=== PATIENT | female | born 1940 | race Caucasian/White ===

== ENCOUNTER 2016-06-02 00:43 | Emergency (ER) | payer MEDICARE, BC ==
[2016-06-02 01:14] VITALS: BP 151/72
[2016-06-02] MEDS ORDERED: GI Cocktail Oral Solution 30 ML PO ONE (01:39)
--- NOTE | 2016-06-02 01:44 | EDM.PDOC ---
ED HISTORY OF PRESENT ILLNESS - General Chief Complaint: Respiratory Problem Stated Complaint: SOB [phone] Time Seen by Provider: 06/02/16 01:41 Source of Information: Reports: Patient History Limitations: Reports: No limitations - History of Present Illness INITIAL COMMENTS - FREE TEXT/NARRATIVE: states been having chest pain problem past few weeks and saw [facility] CAT-chest and EKG and labs where all were ok, got referred to Dr Mcgrath for . tonight seems to feel little more worse so came here. - Related Data Allergies/ADRs: Allergies Allergy/AdvReac Type Severity Reaction Status Date / Time Penicillins Allergy Cannot Verified 06/02/16 00:50 Remember sertraline HCl [From Zoloft] Allergy Other Verified 06/02/16 00:50 sulfadiazine Allergy Cannot Verified 06/02/16 00:50 Remember Tetracyclines Allergy Cannot Verified 06/02/16 00:50 Remember Home Meds: Home Meds Levothyroxine [Synthroid] 1 tab PO DAILY 11/28/13 [History] Policosanol Combination No.3 [Zyncol] 1 tab PO DAILY 06/29/15 [History] Aspirin [Low Dose Aspirin EC] 1 tab PO DAILY 06/02/16 [History] Calcium Carbonate/Vitamin D3 [Calcium 500-Vit D3 200 Caplet] 1 tab PO BID [History] Iron 1 tab PO DAILY 06/02/16 [History] Lutein/Minerals/Vit A,C & E [Ocuvite] 1 tab PO DAILY 06/02/16 [History] Past Medical History HEENT History: Reports: Cataract, Impaired vision Cardiovascular History: Reports: High cholesterol Respiratory History: Reports: None Gastrointestinal History: Reports: None Genitourinary History: Reports: None [employer] History: Reports: Musculoskeletal History: Reports: Other (see below) Other Musculoskeletal History: rib dislocation L) side Neurological History: Reports: Migraines Psychiatric History: Reports: None Endocrine/Metabolic History: Reports: Hypothyroidism Hematologic History: Reports: None Immunologic History: Reports: None Oncologic (Cancer) History: Reports: None Dermatologic History: Reports: None - Infectious Disease History Infectious Disease History: Reports: Chicken pox, Measles, Mumps, Pertussis ( whooping cough) - Past Surgical History Head Surgeries/Procedures: Reports: None HEENT Surgical History: Reports: Cataract surgery Cardiovascular Surgical History: Reports: None Respiratory Surgical History: Reports: None GI Surgical History: Reports: None Female Surgical History: Reports: Hysterectomy Neurological Surgical History: Reports: None Musculoskeletal Surgical History: Reports: None Oncologic Surgical History: Reports: None Dermatological Surgical History: Reports: None Social & Family History - Tobacco Use Smoking Status *Q: Never Smoker Years of Tobacco use: 20 Second Hand Smoke Exposure: No - Caffeine Use Caffeine Use: Reports: Soda - Alcohol Use Days Per Week of Alcohol Use: 0 - Recreational Drug Use Recreational Drug Use: No ED ROS GENERAL - Review of Systems Review Of Systems: ROS reveals no pertinent complaints other than HPI. ED EXAM, GENERAL - Physical Exam Exam: See Below Exam Limited By: No limitations General Appearance: alert, WD/WN, no apparent distress, other (pleasant talkative,) Ears: hearing grossly normal Throat/Mouth: Normal voice, No airway compromise Head: atraumatic Neck: non-tender, full range of motion Respiratory/Chest: no respiratory distress Cardiovascular: regular rate, rhythm GI/Abdominal: soft, non tender Neurological: alert, oriented, normal cognition, normal gait, no motor/sensory deficits Psychiatric: normal affect, normal mood Skin Exam: Warm, Dry Lymphatic: no adenopathy Course - Vital Signs Last Recorded V/S: Last Vital Signs Temp 36.3 C 06/02/16 01:07 Pulse 70 06/02/16 01:07 Resp 18 06/02/16 01:07 BP 151/72 H 06/02/16 01:07 Pulse Ox 100 06/02/16 01:07 - Orders/Labs/Meds Labs: Laboratory Tests 06/02/16 06/02/16 Range/Units 01:50 01:50 WBC 6.2 (5.0-10.0) 10^3/uL RBC 4.10 L (4.2-5.4) 10^6/uL Hgb 9.8 L (12.0-16.0) g/dL Hct 32.3 L (37.0-47.0) % MCV 78.8 L (80-100) fL MCH 23.9 L (27.0-34.0) pg MCHC 30.3 L (33.0-35.0) g/dL Plt Count 217 (150-450) 10^3/uL Neut % (Auto) 59.1 (42.2-75.2) % Lymph % (Auto) 32.1 (20.5-50.1) % [place]aney % (Auto) 6.6 (2-8) % Eos % (Auto) 1.9 (1.0-3.0) % Baso % (Auto) 0.3 (0.0-1.0) % Sodium 138 (135-145) mmol/L Potassium 4.0 (3.6-5.0) mmol/L Chloride 104 (101-111) mmol/L Carbon Dioxide 24.0 (21.0-31.0) mmol/L Anion Gap 14.0 BUN 15 (7-18) mg/dL Creatinine 1.0 (0.6-1.3) mg/dL Est Cr Clr Drug Dosing 46.20 mL/min Estimated GFR (MDRD) 54 BUN/Creatinine Ratio 15.00 Glucose 97 (74-105) mg/dL Calcium 9.7 (8.4-10.2) mg/dl Total Bilirubin 0.3 (0.2-1.0) mg/dL AST 34 (10-42) IU/L ALT 25 (10-60) IU/L Alkaline Phosphatase 67 (42-121) IU/L Troponin I < 0.02 (0.00-0.02) ng/ml B-Natriuretic Peptide 21 (0-100) pg/ml Total Protein 7.0 (6.7-8.2) g/dl Albumin 4.2 (3.2-5.5) g/dl Globulin 2.8 Albumin/Globulin Ratio 1.50 Meds: Medications Discontinued Medications Generic Name Dose Route Start Last Admin Trade Name Ramyq PRN Reason Stop Dose Admin Al Hydroxide/Mg Hydroxide 30 ml 06/02/16 01:39 06/02/16 01:51 Gi Cocktail PO 06/02/16 01:40 30 ml ONETIME ONE Administration - Re-Assessments/Exams Free Text/Narrative Re-Assessment/Exam: 06/02/16 02:55 results discussed with Pt who is feeling much better after GI cocktail. states her spouse 6 years ago and lives alone. Departure - Departure Time of Disposition: 02:56 Disposition: Home, Self-Care 01 Condition: good Clinical Impression: Atypical chest pain Instructions: Chest Wall Pain, [id number] Forms: ED Department Discharge Additional Instructions: 1) rest 2) avoid vigorous activity 3) continue home meds 4) follow up with clinic or recheck as needed rx given: hydroxyzine 25mg bid prn x 12
[2016-06-02 02:15] LABS: CHLORIDE,CL 104 mmol/L (101-111); SODIUM,NA 138 mmol/L (135-145)
[2016-06-02] MEDS ORDERED: hydrOXYzine HCl 25 MG Tab PO ONE (02:55)
[2016-06-02] MEDS ORDERED: hydrOXYzine HCl 25 MG Tab ONE (02:55)
== END 2016-06-02 03:04 | disposition home or self-care (01) ==
LOC: DL.ED 00:43
DX: R07.89 Other chest pain (principal); E78.00 Pure hypercholesterolemia, unspecified; E03.9 Hypothyroidism, unspecified; Z98.49 Cataract extraction status, unspecified eye; Z90.710 Acquired absence of both cervix and uterus; Z79.82 Long term (current) use of aspirin; Z79.899 Other long term (current) drug therapy; Z88.0 Allergy status to penicillin; Z88.2 Allergy status to sulfonamides; Z88.1 Allergy status to other antibiotic agents
CPT/HCPCS: 36415; 80053; 83880; 84484; 85025; 99283; A9270

== ENCOUNTER 2016-06-19 06:51 | Day surgery (SDC) | payer MEDICARE, BC ==
[~2016-06-19 06:51] MED LIST: Dextrose 5%-0.45% NaCl 1,000 ML IV SCH; Midazolam 1 MG/ML 2 ML SDV ONE; Sodium Chloride 0.9% 10 ML Syringe FLUSH PRN; fentaNYL 100 MCG/2 ML SDV ONE
[2016-06-19] MEDS ORDERED: fentaNYL 100 MCG/2 ML SDV IV ONE ×3 (07:38→15:37)
[2016-06-19] MEDS ORDERED: Midazolam 1 MG/ML 2 ML SDV IV ONE ×3 (07:40→15:37)
[2016-06-19 09:31] VITALS: BP 118/56
--- NOTE | 2016-06-19 11:19 | OR ---
DATE: 06/19/2016 PROCEDURE: Esophagogastroduodenoscopy and multiple pinch biopsies. INSTRUMENT USED: GIF-H180 Olympus video panendoscope. PREMEDICATIONS: No oral topical anesthesia used. Fentanyl 100 mcg intravenous, Versed 2 mg intravenous. Nasal 2 L O2 cannula. The procedure was done under pulse oximetry, BP recording, and quality assurance monitor body. INDICATION: The patient with recently detected iron-deficiency anemia, on long- term aspirin. Esophagogastroduodenoscopy is performed for detection of any active erosive lesions, Baez's esophagus and/or malignancy also under consideration, H. pylori status to be determined, endoscopic hemostasis therapy if needed. DESCRIPTION OF PROCEDURE: The scope was passed with ease. Adequate visualization of the esophagus was made from proximal to distal areas. No upper esophageal lesions identified. No distal esophageal stricture. No uphill or downhill esophageal varices. No Ginny-Reyes tear. No evidence of erosive esophagitis by [place] criteria. No esophageal polyp or tumor mass identified. Large sliding hiatal hernia was noted. No proximal gastric varices noted. Gastric fundus examination by retroflexion showed no polypoid lesions. No gastric ulcer, malignant mass, or vascular ectasia identified. Numerous scattered gastric antral erosions were noted without bleeding from them. Multiple pinch biopsies were taken from the gastric antrum and proximal body and sent for PyloriTek test for H. pylori, and if negative in an hour, the tissue is to be sent for histopathology. No gastric vascular ectasia, polyp, or malignant mass noted. Duodenal bulb showed no ulcer. Visualized second part of the duodenum was unremarkable. Photographs were taken of the duodenal bulb, gastric antrum, fundus, and distal esophagus. No bleeding was noted from any of the visualized areas at the completion of examination. IMPRESSION: 1. Sliding hiatal hernia. 2. Gastric antral erosions. The patient tolerated the procedure well. [facility] /[id number]
== END 2016-06-19 09:50 | disposition home or self-care (01) ==
LOC: DL.ENDO 06:51
PROVIDERS: ATTEND Internal Medicine Gastroenterology
DX: K29.50 Unspecified chronic gastritis without bleeding (principal); K44.9 Diaphragmatic hernia without obstruction or gangrene; Z88.0 Allergy status to penicillin; Z88.1 Allergy status to other antibiotic agents; Z88.2 Allergy status to sulfonamides; Z88.8 Allergy status to other drugs, medicaments and biological substances; E78.5 Hyperlipidemia, unspecified; E03.9 Hypothyroidism, unspecified; F41.9 Anxiety disorder, unspecified; Z90.710 Acquired absence of both cervix and uterus
CPT/HCPCS: 43239; 87077; J2250; J3010; J7042; 88305

== ENCOUNTER 2016-06-21 05:12 | Day surgery (SDC) | payer MEDICARE, BC ==
[2016-06-21] MEDS ORDERED: Dextrose 5%-0.45% NaCl 1,000 ML IV SCH (06:00)
[2016-06-21] MEDS ORDERED: Midazolam 1 MG/ML 2 ML SDV ONE (06:15)
[2016-06-21] MEDS ORDERED: fentaNYL 100 MCG/2 ML SDV ONE (06:16)
[2016-06-21] MEDS ORDERED: fentaNYL 100 MCG/2 ML SDV IV ONE ×3 (06:31→17:01)
[2016-06-21] MEDS ORDERED: Midazolam 1 MG/ML 2 ML SDV IV ONE ×5 (06:32→17:01)
[2016-06-21 08:13] VITALS: BP 105/56
--- NOTE | 2016-06-21 08:31 | OR ---
DATE: 06/21/2016 PROCEDURE: Total colonoscopy. INSTRUMENT USED: PCF-H180AL Olympus video colonoscope PREMEDICATIONS: Fentanyl 100 mcg intravenous, Versed 3 mg intravenous. Nasal 2 L O2 cannula. The procedure was done under pulse oximetry, BP recording, and econometrics professor. INDICATION: The patient with iron-deficiency anemia. Colonoscopic examination is done for detection of any polypoid lesions and removal, endoscopic hemostasis therapy if needed. DESCRIPTION OF PROCEDURE: Initial rectal exam was unremarkable. Rigid anoscopy was normal. The colonoscope was passed with ease. Some scattered diverticula were noted in the distal left colon. The scope was passed with ease up to the ileocecal area, photographs were taken of the normal-appearing cecum, identified by double- bulged ileocecal folds. No bleeding was noted from any of the visualized areas at the commencement of the examination. No stricture. No vascular ectasia. No large isolated ulcerations seen. No evidence of diffuse inflammatory bowel disease in the form of friability, contact bleeding, or ulcerations. No polyp or tumor mass identified. Probing the proximal sides of folds and flexures, using adequate distention and clearing of the stool material, withdrawal of the scope was made, cecum to rectum time over 6 minutes. No bleeding was noted from any of the visualized areas at the completion of examination. IMPRESSION: Diverticulosis. The patient tolerated the procedure well. [facility] /[id number]
== END 2016-06-21 08:42 | disposition home or self-care (01) ==
LOC: DL.ENDO 05:12
PROVIDERS: ATTEND Internal Medicine Gastroenterology
DX: K57.30 Diverticulosis of large intestine without perforation or abscess without bleeding (principal); E78.5 Hyperlipidemia, unspecified; E03.9 Hypothyroidism, unspecified; Z88.0 Allergy status to penicillin; Z88.1 Allergy status to other antibiotic agents; Z88.8 Allergy status to other drugs, medicaments and biological substances; F41.9 Anxiety disorder, unspecified; Z90.710 Acquired absence of both cervix and uterus
CPT/HCPCS: 45378; J2250; J3010; J7042

== ENCOUNTER 2019-05-11 06:43 | Day surgery (SDC) | payer MEDICARE, BC ==
[~2019-05-11 06:43] MED LIST changes: -Dextrose 5%-0.45% NaCl 1,000 ML IV SCH; -Sodium Chloride 0.9% 10 ML Syringe FLUSH PRN
[2019-05-11] MEDS ORDERED: fentaNYL 100 MCG/2 ML SDV IV ONE ×3 (06:44→08:08)
[2019-05-11] MEDS ORDERED: Midazolam 1 MG/ML 2 ML SDV IV ONE ×4 (06:44→08:10)
[2019-05-11] MEDS ORDERED: Dextrose 5%-0.45% NaCl 1,000 ML IV SCH (07:30)
--- NOTE | 2019-05-11 09:35 | OR ---
DATE: 05/11/2019 PROCEDURE: Esophagogastroduodenoscopy, multiple pinch biopsies, and brush biopsy. INSTRUMENT USED: GIF-HQ190 Olympus video panendoscope. PREMEDICATIONS: No oral or topical anesthesia used. Fentanyl 100 mcg intravenous, Versed 2 mg intravenous, nasal O2 cannula. Procedure was done under pulse oximetry, BP recording, and drapery installer. INDICATION: The patient with persistent multiple abdominal symptoms, unexplained and not responsive to medical measures, on acid suppressants. Esophagogastroduodenoscopy is performed for detection of any active erosive lesions, Baez esophagus and/or malignancy also under consideration, H pylori status to be determined, endoscopic hemostasis therapy if needed. PROCEDURE IN DETAIL: The scope was passed with ease. Adequate visualization of the esophagus was made from proximal to distal areas. No upper esophageal lesions identified. No distal esophageal stricture. No uphill or downhill esophageal varices. No Ginny-Reyes tear. No evidence of erosive changes by [place] criteria. No esophageal polyp or tumor mass identified. Large hiatal hernia with Derik ulcers noted without bleeding from them. No proximal gastric varices noted. Gastric fundus examination by retroflexion showed no malignant lesions. No gastric malignant mass or vascular ectasia identified. In the mid gastric antrum, 1 cm sized benign-appearing ulcer was noted without bleeding from it. Photographs were taken, multiple pinch biopsies, 6 in number were taken from different areas of the ulcer and brush biopsy was taken for cytology. Duodenal bulb showed no ulcer. Visualized second part of the duodenum was unremarkable. Multiple pinch biopsies were taken from the gastric antrum and proximal body and sent for PyloriTek test for H pylori and histopathology. No bleeding was noted from any of the visualized areas at the completion of examination. Photographs were taken of the duodenal bulb, gastric antrum, fundus, and distal esophagus. IMPRESSION: 1. Hiatal hernia. 2. Derik ulcers. 3. Gastric antral ulcers. The patient tolerated the procedure well. [facility] /[id number]
[2019-05-11 12:35] VITALS: BP 107/77; PULSE 71
== END 2019-05-11 10:20 | disposition home or self-care (01) ==
LOC: DL.ENDO 06:43
PROVIDERS: ATTEND Internal Medicine Gastroenterology
DX: K25.9 Gastric ulcer, unspecified as acute or chronic, without hemorrhage or perforation (principal); K44.9 Diaphragmatic hernia without obstruction or gangrene; M85.80 Other specified disorders of bone density and structure, unspecified site; E03.9 Hypothyroidism, unspecified; E78.5 Hyperlipidemia, unspecified; Z90.710 Acquired absence of both cervix and uterus; Z88.1 Allergy status to other antibiotic agents; Z88.8 Allergy status to other drugs, medicaments and biological substances; Z88.0 Allergy status to penicillin; Z98.49 Cataract extraction status, unspecified eye
CPT/HCPCS: 43239; 87077; J2250; J3010; J7042; 88104; 88305; 88342

== ENCOUNTER 2019-07-23 06:21 | Day surgery (SDC) | payer MEDICARE, BC ==
[2019-07-23] MEDS ORDERED: Midazolam 1 MG/ML 2 ML SDV IV ONE ×3 (06:22→07:41)
[2019-07-23] MEDS ORDERED: fentaNYL 100 MCG/2 ML SDV IV ONE ×3 (06:22→07:40)
[2019-07-23] MEDS ORDERED: Dextrose 5%-0.45% NaCl 1,000 ML IV SCH (07:00)
--- NOTE | 2019-07-23 08:54 | OR ---
DATE: 07/23/2019 PROCEDURE: Esophagogastroduodenoscopy. INSTRUMENT USED: GIF-HQ190 Olympus video colonoscope. PREMEDICATIONS: No oral or topical anesthesia used. Fentanyl 100 mcg intravenous, Versed 2 mg intravenous. Nasal O2 cannula. The procedure was done under pulse oximetry, BP recording, and awake overnight monitor. INDICATION: The patient with previous gastric ulcer treated with PPI. Esophagogastroduodenoscopy is performed for verification of total healing of gastric ulcer, rule out malignancy, endoscopic hemostasis therapy if needed. PROCEDURE IN DETAIL: The scope was passed with ease. Adequate visualization of the esophagus was made from proximal to distal areas. No upper esophageal lesions identified. No distal esophageal stricture. No uphill or downhill esophageal varices. No Ginny-Reyes tear. No evidence of erosive esophagitis by [place] criteria. No esophageal polyp or tumor mass identified. Large sliding hiatal hernia was noted. No proximal gastric varices noted. Gastric fundus examination by retroflexion showed no polypoid lesions. No gastric ulcer, malignant mass, or vascular ectasia identified. Duodenal bulb showed no ulcer. Visualized 2nd part of the duodenum was unremarkable. No bleeding was noted from any of the visualized areas at the completion of examination. Photographs were taken of the duodenal bulb, gastric antrum, fundus, and distal esophagus. IMPRESSION: Large hiatal hernia. The patient tolerated the procedure well. [facility] /[id number]
[2019-07-23 09:47] VITALS: BP 129/65; PULSE 59
== END 2019-07-23 09:52 | disposition home or self-care (01) ==
LOC: DL.ENDO 06:21
PROVIDERS: ATTEND Internal Medicine Gastroenterology
DX: K44.9 Diaphragmatic hernia without obstruction or gangrene (principal); K25.9 Gastric ulcer, unspecified as acute or chronic, without hemorrhage or perforation; F41.1 Generalized anxiety disorder; E03.9 Hypothyroidism, unspecified; E78.5 Hyperlipidemia, unspecified; Z79.899 Other long term (current) drug therapy
CPT/HCPCS: 43235; J2250; J3010; J7042

== ENCOUNTER 2024-10-27 17:08 | Emergency (ER) | payer MEDICARE, BC ==
[2024-10-27 18:02] LABS: BASOPHILS PERCENT AUTO 0.2 % (0.0-1.0); EOSINOPHILS PERCENT AUTO 0.8 % (1.0-3.0); LYMPHOCYTES PERCENT AUTO 21.0 % (20.5-50.1); MONOCYTES PERCENT AUTO 5.2 % (2-8); NEUTROPHILS PERCENT AUTO 72.8 % (42.2-75.2); PLATELET COUNT,PLT 106 10^3/uL (150-450); RED BLOOD CELL COUNT 4.84 10^6/uL (4.2-5.4); WHITE BLOOD CELL COUNT,WBC 5.2 10^3/uL (5.0-10.0)
[2024-10-27 18:26] LABS: A/G RATIO 1.3; ALANINE AMINOTRANSFERASE,ALT 16.0 U/L (14-59); ASPARTATE AMNIOTRANSFERASE,AST 20.0 U/L (15-37); BILIRUBIN TOTAL 0.8 mg/dL (0.2-1.0); BLOOD UREA NITROGEN,BUN 15.0 mg/dL (7-18); CARBON DIOXIDE,CO2 28.0 mmol/L (21-32); CHLORIDE,CL 108.0 mmol/L (98-107); CREATININE 1.16 mg/dL (0.55-1.02); EST CRCL DRUG DOSING (CG) 31.73 mL/min; GLUCOSE RANDOM 141.0 mg/dL (70-99); POTASSIUM,K 3.8 mmol/L (3.5-5.1); PROTEIN TOTAL,TP 6.9 g/dL (6.4-8.2); SODIUM,NA 147.0 mmol/L (136-145)
[2024-10-27 18:27] LABS: INR 1.0 (0.9-1.2)
[2024-10-27 18:36] LABS: ESTIMATED GFR 47.0 mL/min (>=60)
[2024-10-27 19:12] VITALS: BP 121/77; PULSE 81
== END 2024-10-27 19:10 | disposition home or self-care (01) ==
LOC: DL.ED 17:08
DX: K44.9 Diaphragmatic hernia without obstruction or gangrene (principal); E78.00 Pure hypercholesterolemia, unspecified; E03.9 Hypothyroidism, unspecified; Z88.0 Allergy status to penicillin; Z88.2 Allergy status to sulfonamides; Z88.8 Allergy status to other drugs, medicaments and biological substances; Z79.890 Hormone replacement therapy; Z79.899 Other long term (current) drug therapy
CPT/HCPCS: 36415; 71045; 80053; 83690; 84484; 85025; 85610; 93005; 99285

== ENCOUNTER 2024-11-30 07:05 | Day surgery (SDC) | payer MEDICARE, BC ==
[2024-11-30] MEDS: Lactated Ringers 1,000 ML IV SCH (07:45)
[2024-11-30 09:06] VITALS: BP 116/91; PULSE 64
[2024-11-30] MEDS ORDERED: Propofol 200 MG/20 ML SDV ONE (09:23)
== END 2024-11-30 10:21 | disposition home or self-care (01) ==
LOC: DL.ENDO 07:05
PROVIDERS: ATTEND Internal Medicine Gastroenterology
DX: K44.9 Diaphragmatic hernia without obstruction or gangrene (principal); E03.9 Hypothyroidism, unspecified; K21.9 Gastro-esophageal reflux disease without esophagitis; Z88.8 Allergy status to other drugs, medicaments and biological substances; Z88.0 Allergy status to penicillin; Z79.890 Hormone replacement therapy
CPT/HCPCS: 43239; 88305; J7120

== ENCOUNTER 2025-01-05 05:58 | Day surgery (SDC) | payer MEDICARE, BC ==
[2025-01-05] MEDS ORDERED: Propofol 200 MG/20 ML SDV IV ONE (05:59)
[2025-01-05] MEDS: Lactated Ringers 1,000 ML IV SCH (06:54)
[2025-01-05 08:41] VITALS: BP 126/85; PULSE 80
[2025-01-05] MEDS ORDERED: Propofol 200 MG/20 ML SDV ONE (10:01)
== END 2025-01-05 09:07 | disposition home or self-care (01) ==
LOC: DL.ENDO 05:58
PROVIDERS: ATTEND Internal Medicine Gastroenterology
DX: K57.31 Diverticulosis of large intestine without perforation or abscess with bleeding (principal); K52.9 Noninfective gastroenteritis and colitis, unspecified; K64.8 Other hemorrhoids; K21.9 Gastro-esophageal reflux disease without esophagitis; F41.1 Generalized anxiety disorder; Z88.8 Allergy status to other drugs, medicaments and biological substances
CPT/HCPCS: 00811; 45380; 88305; 99100; J2704; J7120